=== PATIENT | female | born 1975 | race Caucasian/White ===

== ENCOUNTER 2023-01-10 20:23 | Day surgery (SDC) | payer OTHER, SELFPAY ==
[2023-01-10 20:31] VITALS: BP 138/86; PULSE 65; RESP 16; TEMP 36.4; O2SAT 99; BMI 23.0
--- NOTE | 2023-01-10 20:54 | CRLHL7_ITS ---
For Patients: As a result of the Century Cures Act, medical imaging exams and procedure reports are released immediately into your electronic medical record. You may view this report before your referring provider. If you have questions, please contact your health care provider. INDICATION: Right lower quadrant abdominal pain TECHNIQUE: CT Abdomen and pelvis with i.v. contrast. Coronal and sagittal reformats were obtained. CONTRAST: 64 mL Isovue 370 COMPARISON: None FINDINGS: Lower chest: Unremarkable. Liver: Several liver cysts are present measuring up to 2 cm. Spleen: Unremarkable. Pancreas: Unremarkable. Gallbladder: Unremarkable. Kidney: Unremarkable. No kidney or ureteral stones or obstruction seen. Adrenal: Unremarkable. Bowel: In the right flank and lower quadrant, there is a swirled appearance of decompressed small bowel loops and mesenteric vessels seen on image 88 which may be due to an internal hernia or small bowel volvulus. A moderate large amount of colonic stool is present within the cecum to the descending colon. The appendix is not identified. Vascular: Unremarkable. Lymph: Unremarkable. Peritoneum: Unremarkable. No pneumoperitoneum is seen. No significant ascites is noted. Pelvis: The uterus is enlarged with numerous fibroids. A calcified fibroid measuring 3.3 cm is seen in the posterior myometrium. Soft tissue: Unremarkable. Bone: Unremarkable for age. IMPRESSION: 1. In the right flank and lower quadrant, there is a swirled appearance of decompressed small bowel loops and mesenteric vessels seen on image 88 which may be due to an internal hernia or small bowel volvulus. Dictated by Kevan Cedeno MD @ 01/10/2023 10:15:07 PM Please note that all CT scans at this facility use dose modulation, iterative reconstruction, and/or weight-based dosing when appropriate to reduce radiation dose to as low as reasonably achievable. Dictated by: Kevan Cedeno MD @ 01/10/2023 22:15:14 (Electronically Signed)
--- NOTE | 2023-01-10 20:57 | ED_ITS ---
HPI - Abdominal Pain General Chief Complaint: Abdominal Pain Stated Complaint: Very bad Stomach ache Time Seen by Provider: 01/10/23 20:30 History of Present Illness HPI narrative: This 47-year-old female comes in with abdominal pain that began this afternoon. She states that she ran a 25 K run this morning and did well but then several hours later began to have pain across her lower abdomen. This pain is worsened since then. She has had some nausea but no vomiting. She states that the pain is relieved when remaining still. She had a hard time standing up straight when ambulating in here. Related Data Home Medications Medication Instructions Recorded Confirmed paroxetine HCl 12.5 mg 12.5 mg PO DAILY 01/10/23 01/10/23 tablet,extended release 24 hr Allergies Allergy/AdvReac Type Severity Reaction Status Date / Time No Known Drug Allergies Allergy Verified 01/10/23 20:34 Review of Systems Status of ROS Reports: 10 or more systems reviewed and unremarkable except as noted in History and below Narrative Constitutional: No fevers, no weight gain or loss. Eyes: No discharge. No vision changes. HENT: No congestion, no sore throat, no ear pain. Cardiovascular: No chest pain, no palpitations. Respiratory: No shortness of breath, no wheezes, no cough. Gastrointestinal: Abdominal pain with nausea as described above. Genitourinary: No dysuria, no hematuria. Musculoskeletal: Normal range of motion. Skin: No rashes, no pruritis. Neurological: No dizziness, weakness, sensory change, speech change. Endo/Heme/Allergies: No bruising or bleeding. No polydipsia. Pysch: no suicidality, no anxiety, no insomnia. All other systems reviewed and are negative. [facility] Medical History (Updated 01/10/23 @ 23:09 by Johnathon Mccracken MD) Dysthymia ?F34.1 - Dysthymic disorder (ICD-10) Iron deficiency anemia, unspecified ?D50.9 - Iron deficiency anemia, unspecified (ICD-10) History of placenta abruption ?Z87.59 - Personal history of other complications of , childbirth and the puerperium (ICD-10) Social History Smoking Status: Never smoker Do you use any of these nicotine containing products: None How often do you have a drink containing alcohol: monthly or less How many standard drinks containing alcohol do you have on a typical day: 1 or 2 How often do you have six or more drinks on one occasion: Never AUDIT-C Alcohol total score: 1 Non-prescribed substance use: denies use Exam Narrative: Exam Narrative: Constitutional: Well-developed, well-nourished, no acute distress. HEENT: Normocephalic, atraumatic. Neck: Normal range of motion. Nontender. Supple. Heart: Regular. No murmurs. Normal rate. Intact distal pulses. Lungs: Clear to auscultation. No chest discomfort. No wheezes, rhonchi, or rales. Abdomen: Decreased bowel sounds. Pain across the lower abdomen. Rovsing sign is positive. Rebound tenderness is present. Genitalia: Deferred. Back: No midline tenderness. Normal range of motion. Extremities: Normal range of motion. No injury. Skin: Intact. No rash. Warm. No erythema or pallor. Neurologic: No altered sensation. No weakness. Alert and oriented. Psychiatric: No suicidality. No anxiety or depression. No insomnia. Nursing notes and vitals signs are reviewed. Const: Vital Signs, click to edit/add: Vital Signs - 24 hr 01/10/23 20:31 Temperature 97.6 F Pulse Rate [Left P ulse Oximeter] 65 Respiratory Rate 16 Blood Pressure [Ri ght Upper Arm] 138/86 Pulse Oximetry 99 Oxygen Delivery Me thod Room Air Course Vital Signs Vital signs: Initial Vital Signs Temperature 97.6 F 01/10/23 20:31 Temperature Source Temporal Artery Scan 01/10/23 20:31 Pulse Rate 65 01/10/23 20:31 Respiratory Rate 16 01/10/23 20:31 Blood Pressure 138/86 01/10/23 20:31 Blood Pressure Mean 103 01/10/23 20:31 Blood Pressure Position Sitting 01/10/23 20:31 Pulse Oximetry 99 01/10/23 20:31 Oxygen Delivery Method Room Air 01/10/23 20:31 Vital Signs Temperature 97.6 F 01/10/23 20:31 Pulse Rate 65 01/10/23 20:31 Respiratory Rate 16 01/10/23 20:31 Blood Pressure 138/86 01/10/23 20:31 Pulse Oximetry 99 01/10/23 20:31 Oxygen Delivery Method Room Air 01/10/23 20:31 Temperature 97.6 F 01/10/23 20:31 Pulse Rate 65 01/10/23 20:31 Respiratory Rate 16 01/10/23 20:31 Blood Pressure 138/86 01/10/23 20:31 Pulse Oximetry 99 01/10/23 20:31 Oxygen Delivery Method Room Air 01/10/23 20:31 MDM - Abdominal Pain MDM Narrative Medical decision making narrative: This patient comes in with severe pain in her right lower quadrant. CT imaging of the abdomen and pelvis does show a normal appendix but also changes in the bowel in that area that may be related to an internal hernia or possible volvulus. I spoke with the surgeon on-call, Dr. Pfeiffer, who recommends laparoscopic surgery to further evaluate and hopefully correct this problem. The patient is agreeable to this plan. Lab Data Labs: Lab Results 01/10/23 Range/Units 20:37 WBC 5.97 (4.50-11.00) K/uL RBC 4.22 (4.00-5.20) m/uL Hgb 12.2 (12.0-16.0) gm/dL Hct 37.4 (33.0-51.0) % MCV 89 (80-100) fL MCH 29 (26-34) pg MCHC 33 (32-36) gm/dL RDW Coeff of Valeria 14.0 (11.5-15.5) % Plt Count 318 (140-440) K/uL Neut % (Auto) 47.6 (42.0-72.0) % Lymph % (Auto) 42.5 (20-44) % [place] % (Auto) 7.9 (0.0-11.0) % Eos % (Auto) 1.5 (0.0-7.0) % Baso % (Auto) 0.5 (0.0-3.0) % Neut # (Auto) 2.84 (1.7-7.0) K/uL Lymph # (Auto) 2.54 (0.90-2.90) K/uL [place] # (Auto) 0.50 (0.00-0.90) K/UL Eos # (Auto) 0.09 (0.00-0.50) K/uL Baso # (Auto) 0.03 (0.00-0.30) K/uL Sodium 139 (135-149) mmol/L Potassium 3.6 (3.6-5.1) mmol/L Chloride 106 (96-114) mmol/L Carbon Dioxide 25 (20-32) mmol/L BUN 16 (5-24) mg/dL Creatinine 0.7 (0.5-1.5) mg/dL Estimated Creat Clear 83.07 Estimated GFR 108 ml/min Glucose 104 (60-115) mg/dL Calcium 8.8 (8.4-10.6) mg/dL Discharge Plan Discharge Clinical Impression: Volvulus Patient Disposition: XFER to OR Prescriptions: No Action paroxetine HCl 12.5 mg tablet extended release 24 hr 12.5 mg PO DAILY Follow Up/Referrals: Provider,Not a Local [Primary Care Provider] -
[2023-01-10 21:01] LABS: Basophils Absolute Auto 0.03 K/uL (0.00-0.30); Basophils Percent Auto 0.5 % (0.0-3.0); Eosinophils Absolute Auto 0.09 K/uL (0.00-0.50); Eosinophils Percent Auto 1.5 % (0.0-7.0); Hematocrit 37.4 % (33.0-51.0); Hemoglobin* 12.2 gm/dL (12.0-16.0); Lymphocytes Absolute Auto 2.54 K/uL (0.90-2.90); Lymphocytes Percent Auto 42.5 % (20-44); Mean Corpuscular HGB Conc 33 gm/dL (32-36); Mean Corpuscular Hemoglobin 29 pg (26-34); Mean Corpuscular Volume 89 fL (80-100); Monocytes Percent Auto 7.9 % (0.0-11.0); Neutrophils Absolute Auto 2.84 K/uL (1.7-7.0); Neutrophils Percent Auto 47.6 % (42.0-72.0); Platelet Count* 318 K/uL (140-440); Red Blood Count 4.22 m/uL (4.00-5.20); White Blood Count* 5.97 K/uL (4.50-11.00)
[2023-01-10 21:05] LABS: Slide Review Reflex No
[2023-01-10 21:10] LABS: Chloride* 106 mmol/L (96-114); Sodium* 139 mmol/L (135-149)
[2023-01-10 21:11] LABS: Potassium* 3.6 mmol/L (3.6-5.1)
[2023-01-10 21:13] LABS: Carbon Dioxide* 25 mmol/L (20-32); Creatinine* 0.7 mg/dL (0.5-1.5); Est. Creatinine Clearance* 83.07; Estimated Glomerular Filt Rate 108 ml/min
[2023-01-10 21:14] LABS: Blood Urea Nitrogen* 16 mg/dL (5-24); Calcium* 8.8 mg/dL (8.4-10.6); Glucose* 104 mg/dL (60-115)
[2023-01-10] MEDS: 0.9 % SODIUM CHLORIDE 1000 ml 1,000 ML IV (21:50)
--- NOTE | 2023-01-10 23:29 | P.GSHP_ITS ---
History of Present Illness History of Present Illness Date Seen: 01/10/23 Chief complaint: Very bad Stomach ache Narrative: Antonia Gann is a 47 year old female Who presented to the emergency room with right lower quadrant abdominal pain that started today after eating dinner. Patient ran 25 km today. She is training for a 50 km race. She was doing well and went to dinner with her friends. However, during dinner she developed severe abdominal pain that was described as steady discomfort that was worse with movement. When patient stood up, she was not able to walk well. She then was brought to the emergency room by her significant other. Patient had nausea but no vomiting. For the past 3 days she had occasional episodes of discomfort that went away spontaneously. Patient continues to feel a little bit bloated. She was passing gas today. Her last bowel movement was yesterday. Upon her workup in the emergency room she was found to have a normal WBC. An abdominal CT was obtained that showed stool in the colon throughout. There was also a swirl sign in the right lower quadrant concerning for possible internal hernia. The appendix was not visualized. Patient had a colonoscopy last fall and that was normal. Review of Systems Narrative: General: no fevers HENT: no problems swallowing CV: no shortness of breath Resp: no cough GI: See above Skin: no new rashes Musculoskeletal: no back pain Neuro: no muscle weakness Psyche: + anxiety PFSH PFSH Medical History (Updated 01/10/23 @ 23:33 by Mauricio House MD) Anxiety ?F41.9 - Anxiety disorder, unspecified (ICD-10) Dysthymia ?F34.1 - Dysthymic disorder (ICD-10) Iron deficiency anemia, unspecified ?D50.9 - Iron deficiency anemia, unspecified (ICD-10) History of placenta abruption ?Z87.59 - Personal history of other complications of , childbirth and the puerperium (ICD-10) Surgical History (Updated 01/10/23 @ 23:33 by Mauricio House MD) History of delivery ?Z98.891 - History of uterine scar from previous surgery (ICD-10) Social History (Updated 01/10/23 @ 23:33 by Mauricio House MD) Narrative: patient is an commercial real estate appraiser. Smoking Status: Never smoker Do you use any of these nicotine containing products: None How often do you have a drink containing alcohol: monthly or less How many standard drinks containing alcohol do you have on a typical day: 1 or 2 How often do you have six or more drinks on one occasion: Never AUDIT-C Alcohol total score: 1 Non-prescribed substance use: denies use Meds Home Medications and Allergies Home Medications Medication Instructions Recorded Confirmed Type paroxetine HCl 12.5 mg 12.5 mg PO DAILY 01/10/23 01/10/23 History tablet,extended release 24 hr Allergies Allergy/AdvReac Type Severity Reaction Status Date / Time No Known Drug Allergies Allergy Verified 01/10/23 20:34 Exam Narrative: Exam Narrative: General appearance: Alert, cooperative, and in no distress Pulmonary: Chest symmetric, lungs clear bilaterally Cardiovascular Heart: Regular rate and rhythm, S1, S2, no murmurs/rubs/gallops Gastrointestinal Abdominal: soft, not distended, Tender to palpation in the right lower quadrant with no peritoneal signs. Psychiatric: Alert, cooperative, normal affect. Const: Vital Signs, click to edit/add: Vital Signs - 24 hr 01/10/23 20:31 Temperature 97.6 F Pulse Rate [Left P ulse Oximeter] 65 Respiratory Rate 16 Blood Pressure [Ri ght Upper Arm] 138/86 Pulse Oximetry 99 Oxygen Delivery Me thod Room Air Assessment and Plan Assessment and plan (1) Volvulus: Status: Acute Plan 47-year-old female presented to emergency room with right lower quadrant abdominal pain due to possible internal hernia. I discussed with the patient her significant other her laboratory and CT findings. Patient's CT shows a swirl of the mesentery and small bowel in the right lower quadrant. The appendix was not visualized. Patient's only intra- abdominal surgery was a . I discussed with the patient that this presentation is unusual for a patient with no history of intra-abdominal surgery. However, given the possible finding of internal hernia and bowel compromise, I would recommend to proceed with exploratory laparoscopy and possible exploratory laparotomy. I discussed with the patient the procedure. The risks associated procedure including infection, bleeding, injury to intra- abdominal organs, possible need to remove her appendix, injury to the to the large intestine during the entrance into the abdomen were all discussed with the patient, and she agreed to proceed.
[2023-01-10] MEDS: LACTATED RINGERS 1000 ML 1,000 ML 100 ML IV (23:46)
[2023-01-10] MEDS: CEFAZOLIN 1 GM inj IVP (23:55)
[2023-01-11] VITALS (22 sets, daily range): BP systolic 110–143; BP diastolic 63–88; PULSE 61–101; RESP 14–18; TEMP 37.2–37.7; O2SAT 92–98
[2023-01-11] MEDS: BUPIVACAINE 0.25% 30 ML INJECTION (00:59)
--- NOTE | 2023-01-11 01:10 | PM.GSPRC ---
Operative Note Date of procedure: 01/11/23 Pre-op diagnosis: 1. Right for lower quadrant pain with possible small bowel volvulus. Post-op diagnosis: 1. Ileocecal junction was twisted and tucked in the retroperitoneal pocket. 2. Retrocecal appendix. Type of Procedure: 1. Exploratory laparoscopy. 2. Laparoscopic lysis of adhesions. 3. Incidental appendectomy. Indications: 47-year-old female presented to emergency room with sudden onset of right lower quadrant abdominal pain that started several hours prior to presentation. Patient was nauseated but did not have any episodes of vomiting. She was passing gas. Upon her workup she was found to have normal WBC. Her electrolytes were normal. An abdominal CT was obtained that showed a possible mesenteric swirl in the right lower quadrant concerning for a small bowel volvulus. Appendix was not visualized. On clinical exam patient had tenderness to palpation in the right lower quadrant with no peritoneal signs. Given her clinical picture and her physical exam, I recommended to proceed with laparoscopic exploration and possible exploratory laparotomy. The procedure was discussed in detail. The risks associated procedure including infection, bleeding, injury to intra-abdominal organs, the need for additional procedures, and possible appendectomy were all discussed with the patient, and she agreed to proceed. Procedure Description: After discussing the risks and benefits of the procedure, the patient signed informed consent.? The operative site was marked and the patient was brought to the operating room and placed on the operating table in supine position.? Care was taken to pad the patient's pressure points.?? The patient was then intubated by anesthesia.?? The operative site was then prepped and draped in the usual sterile fashion.? A time-out was then performed. A 5-mm laparoscopy port was placed in the left upper quadrant guided by a 5-mm laparoscope placed into a translucent trochar. Passage through the layers of the abdominal wall was visualized with the laparoscope. A pneumoperitoneum was established. A 30-degree 5-mm laparoscope was advanced into the abdomen. Abdomen was surveyed and revealed a redundant cecum. The cecum appeared viable with no serosal tears. Two additional 5 mm ports were placed in the left lower quadrant and suprapubically under direct visualization. The right lower quadrant was then examined. There was a twist in the ileocecal junction with small intestine and the ileocecal junction positioned in the retroperitoneal pocket. The retroperitoneal pocket adhesions were fairly dense. The ileocecal junction was reduced from the retrocecal pocket with graspers, and the large intestine and small intestine were viable. The appendix was not visualized because it was diving into the retrocecal space but the base of the appendix was seen and was not inflamed. The dense retroperitoneal adhesions were lysed with Harmonic scalpel obliterating the pocket. The appendix was very thin and running into the retrocecal space. I then proceeded with running the small bowel laparoscopically. This was done with soft jaw graspers starting at the terminal ileum and continuing to the ligament of Treitz. Ligament of Treitz was not definitely visualized but no additional adhesions of the small intestine were noted. The small intestine appeared healthy. I then proceeded with incidental appendectomy. The suprapubic 5 mm port was then upsized to a 12 mm port. The appendix was grasped near its base. A window was created between appendiceal mesentery and the appendix using [place] grasper. The appendix was then stapled at its base with a vascular load of Endo-RAYSA stapler. The appendix was then dissected off the appendiceal mesentery in the retrograde fashion with Harmonic scalpel. There was no defined appendiceal artery noted. When the appendix was free, it was removed from the abdomen through a 12 mm port. The surgical field was examined and no bleeding was seen. The appendiceal base staple line appeared to be intact. The 12-mm port was withdrawn and the fascial defect was closed with 0-0 Vicryl stitch. The closure was examined intra-abdominally, and no intra-abdominal structures were incarcerated in the closure. The 5-mm port was removed under direct visualization. The left upper quadrant port was used to evacuate the pneumoperitoneum and then withdrawn. The skin incisions were closed with 4-0 monocryl. Steri-Strips were applied over the incisions. All counts were correct at the end of the case. The patient tolerated this procedure well and was transferred to PACU in stable condition. Findings: Ileocecal junction was twisted and positioned in the retroperitoneal pocket making it difficult to reduce spontaneously. Anesthesia: GETA Surgeon: Mauricio House MD Estimated blood loss (mL): 5 Specimen: Appendix Condition: stable Disposition: PACU
[2023-01-11] MEDS: MEPERIDINE 25 MG/ML INJ 12.5 MG IVP (01:15)
--- NOTE | 2023-01-11 01:18 | P.ANES_ITS ---
Anesthesia Charges Start Date/Time Anesthesia Start Date: 01/11/23 Anesthesia Start Time: 23:46 Stop Date/Time Anesthesia Stop Date: 01/11/23 Anesthesia Stop Time: 01:17 Summary Emergency: [facility] [employer]
[2023-01-11] MEDS: LACTATED RINGERS 1000 ML 1,000 ML 75 ML IV (03:30)
[2023-01-11] MEDS: ACETAMINOPHEN 325 MG TABLET 650 MG PO (04:36)
--- NOTE | 2023-01-11 07:21 | PC.NURSE ---
[id number] Shift Summary? CCU1 K.D. 47 Appendectomy- adhesions and volvulus? Came to floor at 0145, on post op vitals. Plans to DC home with this morning pending stability. On 1 L overnight for sats in high 80s. Can wean once awake. Denies pain. Given 650 Tylenol and pillow to splint. 3?lap sites CDI. LL site was draining prior to transfer. Voided in BR x2, drinking water, IVFs DCed. IV in L hand. May advance diet as tolerated. IS reviewed. Stable with SBA?
--- NOTE | 2023-01-11 11:18 | P.DS_ITS ---
DS: Providers Provider Date Seen: 01/11/23 Primary care physician: Not a Local Provider Attending Physician on discharge: Mauricio House MD DS: Diagnosis Discharge Diagnosis (1) Volvulus: Status: Acute DS: Summary Hospital Course Hospital Course: 47-year-old female was admitted to the hospital after exploratory laparoscopy, lysis of adhesions, and incidental appendectomy. Intraoperatively patient was found to have a volvulus around the ileocecal valve tucked into the retroperitoneum comprised of pocket of dense adhesions. Patient did well postoperatively. Time Spent with Patient Time attestation: Total time spent providing and/or coordinating discharge services: Exam Narrative: Exam Narrative: Abdomen is soft, not distended, not tender to palpation. Laparoscopic incisions are covered with clean dressings. Const: Vital Signs, click to edit/add: Vital Signs - 24 hr 01/10/23 20:31 01/11/23 01:12 01/11/23 01:15 Temperature 97.6 F 99.9 F H Pulse Rate 101 H 88 Pulse Rate [Left P ulse Oximeter] 65 Pulse Rate [Pulse Oximeter] Respiratory Rate 16 16 16 Blood Pressure 141/88 H 143/88 H Blood Pressure [Ri ght Arm] Blood Pressure [Ri ght Upper Arm] 138/86 Pulse Oximetry 99 97 98 Oxygen Delivery Me thod Room Air OxyMask Oxygen Flow Rate 01/11/23 01:20 01/11/23 01:25 01/11/23 01:30 Temperature Pulse Rate 74 71 70 Pulse Rate [Left P ulse Oximeter] Pulse Rate [Pulse Oximeter] Respiratory Rate 14 16 16 Blood Pressure 131/77 121/66 119/63 Blood Pressure [Ri ght Arm] Blood Pressure [Ri ght Upper Arm] Pulse Oximetry 98 95 93 Oxygen Delivery Me thod Oxygen Flow Rate 01/11/23 01:35 01/11/23 01:40 01/11/23 01:49 Temperature 99.8 F H Pulse Rate 64 61 Pulse Rate [Left P ulse Oximeter] Pulse Rate [Pulse Oximeter] Respiratory Rate 14 14 16 Blood Pressure 123/70 117/71 Blood Pressure [Ri ght Arm] 110/68 Blood Pressure [Ri ght Upper Arm] Pulse Oximetry 95 97 Oxygen Delivery Me thod Nasal Cannula Oxygen Flow Rate 1 01/11/23 02:02 01/11/23 02:07 01/11/23 02:30 Temperature Pulse Rate Pulse Rate [Left P ulse Oximeter] Pulse Rate [Pulse Oximeter] Respiratory Rate 16 16 16 Blood Pressure Blood Pressure [Ri ght Arm] 120/81 120/81 112/86 Blood Pressure [Ri ght Upper Arm] Pulse Oximetry Oxygen Delivery Me thod Nasal Cannula Nasal Cannula Nasal Cannula Oxygen Flow Rate 1 1 2 01/11/23 02:47 01/11/23 02:47 01/11/23 02:54 Temperature Pulse Rate Pulse Rate [Left P ulse Oximeter] Pulse Rate [Pulse Oximeter] 66 Respiratory Rate 16 18 Blood Pressure Blood Pressure [Ri ght Arm] 112/86 122/70 119/73 Blood Pressure [Ri ght Upper Arm] Pulse Oximetry 92 Oxygen Delivery Me thod Nasal Cannula Room Air Room Air Oxygen Flow Rate 2 01/11/23 03:00 01/11/23 03:40 01/11/23 04:29 Temperature 98.9 F Pulse Rate Pulse Rate [Left P ulse Oximeter] Pulse Rate [Pulse Oximeter] Respiratory Rate Blood Pressure Blood Pressure [Ri ght Arm] 115/73 Blood Pressure [Ri ght Upper Arm] Pulse Oximetry 98 Oxygen Delivery Me thod Nasal Cannula Oxygen Flow Rate 2 01/11/23 07:00 01/11/23 07:39 01/11/23 07:42 Temperature 98.9 F 98.9 F Pulse Rate Pulse Rate [Left P ulse Oximeter] Pulse Rate [Pulse Oximeter] 79 79 Respiratory Rate 16 16 Blood Pressure Blood Pressure [Ri ght Arm] 118/75 118/75 Blood Pressure [Ri ght Upper Arm] Pulse Oximetry 97 97 97 Oxygen Delivery Me thod Room Air Room Air Room Air Oxygen Flow Rate 01/11/23 07:54 Temperature 98.9 F Pulse Rate Pulse Rate [Left P ulse Oximeter] Pulse Rate [Pulse Oximeter] 69 Respiratory Rate 16 Blood Pressure Blood Pressure [Ri ght Arm] 119/76 Blood Pressure [Ri ght Upper Arm] Pulse Oximetry 97 Oxygen Delivery Me thod Room Air Oxygen Flow Rate DS: Data Data Completed and Pending Labs on day of discharge: Labs from last 24 hours 01/10/23 20:37 WBC 5.97 RBC 4.22 Hgb 12.2 Hct 37.4 MCV 89 MCH 29 MCHC 33 RDW Coeff of Valeria 14.0 Plt Count 318 Neut % (Auto) 47.6 Lymph % (Auto) 42.5 [place] % (Auto) 7.9 Eos % (Auto) 1.5 Baso % (Auto) 0.5 Neut # (Auto) 2.84 Lymph # (Auto) 2.54 [place] # (Auto) 0.50 Eos # (Auto) 0.09 Baso # (Auto) 0.03 Sodium 139 Potassium 3.6 Chloride 106 Carbon Dioxide 25 BUN 16 Creatinine 0.7 Estimated Creat Clear 83.07 Estimated GFR 108 Glucose 104 Calcium 8.8 Discharge Plan Discharge Disposition: Home, Self-Care Discharging Surgeon: Mauricio House Follow-Up Appointment: 2 weeks [facility] Prescriptions: New hydrocodone-acetaminophen 5-325 mg tablet 1 tab PO Q6H PRN (Reason: pain) Qty: 10 0RF Continued paroxetine HCl 12.5 mg tablet extended release 24 hr 12.5 mg PO DAILY Activity Level: No strenuous activity Activity Detail: Patient should avoid running for the next 2 weeks. After the 2 weeks, she can slowly advance her running as tolerated. She should avoid strong core work and lifting anything more than 15-20 lb for total of 4 weeks postoperatively. Discharge Diet: Regular Patient Instructions: Hydrocodone/Acetaminophen (By mouth), Laparoscopic Appendectomy (DC) Forms: Work/School Release Follow-up: Mauricio House MD [Staff Physician] - Discharge Orders: Discharge Order (Routine); Ordered 01/11/23 Ordered By: Mauricio House
--- NOTE | 2023-01-11 13:04 | PC.NURSE ---
Discharge: Patient pleasant and cooperative, up independently. No c/o pain. Bowel sounds present. Vitals stable and WNL. Tolerating regular diet, denies nausea. Discharge instructions given, patient informed to make follow up within next two weeks, new medication orders reviewed. Questions answered as needed. IV removed with catheter intact. Patient discharged @ 1236 via wheelchair, home with .
== END 2023-01-11 12:36 | disposition home or self-care (01) ==
LOC: ED 23:11 → SS 23:45 → MEDSURG 01-11 02:16
PROVIDERS: Emergency Provider Emergency Medicine Emergency Medical Services; Visit Provider Surgery
PROC: (CPT 49320; principal; 2023-01-10 23:45)
DX: K56.2 Volvulus (principal); K66.0 Peritoneal adhesions (postprocedural) (postinfection); R10.31 Right lower quadrant pain; F41.9 Anxiety disorder, unspecified
CPT/HCPCS: 44180; 00790; 36415; 74177; 80048; 85025; 88302; 99140; 99285; A9270; J0330; J0690; J1100; J1200; J1885; J2175; J2405; J2704; J2710; J3010; J3475; J3490; J7030; J7120; Q9967

== ENCOUNTER 2024-04-28 08:57 | Outpatient (CLI) | payer OTHER, SELFPAY ==
--- OUTSIDE RECORDS SUMMARY | 2024-04-28 09:00 | XMS_ITS | Clinical Summary ---
Author Organization [employer] [facility] Address [place], [place] [address] Care Team Providers Care Cardiologist Name Role Phone Padmini Raines Primary Care Provider [phone] Allergies No known active allergies Medications Medication Sig Dispensed Refills Start Date End Date Status PARoxetine (Paxil Cr) 12.5 mg Extended-Release tabletIndications :Dysthymia Take 1 Tablet by mouth every morning. 90 Tablet 3 10/19/2023 Active docusate (COLACE) 100 mg capsule Take 1 Capsule by mouth two times daily. 04/01/2024 Active polyethylene glycol (MIRALAX; GLYCOLAX) 17 g per packet packet Mix 17 g in liquid then take by mouth one time. 04/01/2024 Active ferrous sulfate 325 mg delayed release tablet Take 1 Tablet (325 mg) by mouth once every other day. 90 Tablet 3 02/27/2021 04/13/2024 Discontinued( *Med complete/Victorina men complete/Leve l of care change) polyethylene glycol-electrolyt e (GOLYTELY) 236-22.74-6.74 -5.86 gram suspensionIndicat ions:Cecal bascule (HC) Take 4,000 mL by mouth one time for 1 dose. 4000 mL 04/22/2024 04/22/2024 Active Problems Problem Noted Date Diagnosed Date Iron deficiency anemia 02/27/2021 Dysthymia 02/27/2021 Unspecified vitamin D deficiency 12/20/2009 Resolved Problems Problem Noted Date Diagnosed Date Resolved Date ASCUS of cervix with negative high risk HPV 09/07/2016 10/03/2016 Overview: 09/2016 PLAN: PAP/HPV 09/2019 S/P section 02/12/2011 014 Placental abruption 02/12/2011 06/28/20 14 Supervision of normal first 08/15/2010 06/28/2014 Encounters Date Type Department Care Team Description 04/27/2024 3:00 PM CDT Preop Visit [facility] [address] [facility] [place] [address] Padmini Raines, Preoperative Exam (04/28 barium enema, 05/02/24 laparoscopic ileocecectomy - [facility] - Dr. House) 04/27/2024 Travel 04/20/2024 Orders Only [facility] Scanner 1 scan: (1-Ord) [facility], PAYTONVE [facility]OP[facility], 04/20/2024 04/19/2024 Telephone [facility] [address] [facility] [place] [address] Mauricio House MD Pre Procedure (Go-lytly prep) 04/18/2024 4:30 PM CDT Office Visit [facility] [address] [facility] [place] [address] Mauricio House MD Consult (Cecal bascule, small bowel obstruction) 04/18/2024 Travel 04/18/2024 Orders Only [facility] [address] [facility] [place] [address] Padmini aRines DO <No scans attached> 04/13/2024 3:00 PM CDT Office Visit [facility] [address] [facility] [place] [address] Padmini Raines, Hospital F/U (Cecal bascule, bowel obstruction 03/31/24) 04/12/2024 Travel from Last 3 Months Immunizations Name Administration Dates Next Due AMB Influenza, IIV4 PF (=>6 mos Flulaval,Fluzone Fluarix)(Flu Clinic Only) 06/12/2020,06/26/2016,06/08/2015 Amb Influenza, Inact (High-d ose) (Flu Clinic Only) 06/23/2014 COVID-19 Vaccine Spikevax (M oderna 50mcg/0.5mL) 12YO+ [id number] Formula PF 07/22/2023 COVID-19 vaccine ([employer]Bio NTech 30mcg/0.3mL) 12YO+ BIVALENT PF, MDV 07/14/2022 COVID-19 vaccine ([employer]-Bio NTech 30mcg/0.3mL) PF, MDV 12/29/2020,12/08/2020 Influenza, IIV3 (Age 6-35 mos) 08/18/2011 Influenza, IIV3 (Age >=3 years) 06/23/20 14,06/23/2013,08/18/2011,06/13/20 10 Influenza, IIV4 07/22/2023, 2,07/06/2018,06/26/20 16,06/08/2015 MMR 02/15/2011 Tdap 02/27/2021,12/17/2009 Family History Medical History Relation Name Comments Good Health Brother Cancer-colon Father Good Health Maternal Grandfather Heart Disease Maternal Grandmother Melanoma Maternal Uncle Good Health Mother COPD Paternal Grandfather Emphyse ma related to smoking Cancer-colon Paternal Grandmother mid 60s Good Health Sister 1 Good Health Sister 2 Good Health Son Cancer-breast No Family History Cancer-ovarian No Family History Relation Name Status Comments Brother Father Maternal Grandfather Maternal Grandmother Maternal Uncle Mother Paternal Grandfather Paternal Grandmother Sister 1 Sister 2 Alive Son Alive Social History Tobacco Use Types Packs/Day Years Used Date Smoking Tobacco: Never Smokeless Tobacco: Never Tobacco Cessation:Counseling Given: Yes Alcohol Use Standard Drinks/Week Comments Yes 0 (1 standard drink = 0.6 oz pur e alcohol) twice a month PHQ-2 Answer Date Recorded PHQ-2 TOTAL SCORE 0 02/27/2021 Social Connections Answer Date Recorded Frequency of Communication with Friends and Fami ly 0 04/13/2024 Financial Resource Strain Answer Date R ecorded Difficulty of Paying Living Expenses 3 04/13/2024 Difficulty of Paying Living Expenses Not on file 04/13/2024 Food Insecurity Answer Date Recorded Worried About Running Out of Food in the Last Ye ar 1 04/13/2024 Transportation Needs Answer Date Record ed Lack of Transportation (Medical) 1 04/13/2024 Housing Stability Answer Date Recorded Unable to Pay for Housing in the Last Year 1 04/13/2024 Sex and Gender Information Value Date Recorded Sex Assigned at Female 05/11/2020 9:38 PM CDT Gender Identity Female 05/11/2020 9:38 PM CDT Sexual Orientation Straight 05/11/2020 9: 38 PM CDT Travel History Travel Start Travel End [place] 03/25/2024 04/11/2024 Obstetrics History Para Term AB IAB SAB Ectopic Multiple Livin g Live Births 1 1 1 1 1 Date Outcome GA Total Labor Labor/2nd/3rd Weight Sex Type Anes PTL Mitzi A1 A5 Name Clin 011 Term 41w 2d 3.86 kg (8 lb 8 oz) M C-Sec tion N Living Delivery Location:[place] Comments:Emergent C-Se ction due to placental abruption. Transfused 4 U PRBCs & 2U FFP P del Last Filed Vital Signs Vital Sign Reading Time Taken Comments Blood Pressure 126/86 04/27/2024 3:08 PM CDT Pulse 59 04/27/2024 3:08 PM CDT Temperature 36.9 ??C (98.4 ??F) 07/19/2021 1:40 PM CS T Respiratory Rate 12 07/19/2021 1:40 PM ENVIRONMENT COORDINATOR Oxygen Saturation 97% 04/27/2024 3:08 PM CDT Inhaled Oxygen Concentration - - Weight 60 kg (132 lb 4.8 oz) 04/27/2024 3:08 PM CDT Height 159.2 cm (5' 2.68) 10/19/2023 1:08 PM CS T Body Mass Index 23.68 10/19/2023 1:08 PM ENVIRONMENT COORDINATOR Plan of Treatment Upcoming Encounters Date Type Department Care Team (Late st Contact Info) Description 05/02/2024 6:00 AM CDT Office Visit [facility] at [facility] [address] [place] [phone] Mauricio House MD [address] [place] [address] Health Maintenance Due Date Last Done Comments Hepatitis C screening for age 18-79 1994 Depression screening for age 12+ 02/27/2022 02/27/2021, 02/14/2020, 02/17/2019, Additional history exists Mammogram for age 45-75 04/13/2024 04/13/20, 03/13/2022, 03/08/2021 Influenza for age 9-49 05/08/2024 3, 07/14/2022, 06/12/2020, Additional history exists BMI (ht and wt on same day) for age 18+ 10/19/2024 10/19/2023, 03/04/2022, 07/19/2021, Additional history exists Lipids for age 45-75 02/27/2026 02/27/2021, 12/18/19 10 Pap test for age 21-65 02/27/2026 , 02/27/2021, 09/25/2016, Additional history exists Colonoscopy through age 75 05/21/202705/21, 05/21/2022, 05/21/2022 Tetanus booster 02/27/2031 02/27/2021, 12/17/2009 HIV for age 15-65 Completed 06/13/2010 Fecal testing non-DNA (FIT,FOBT,iFOBT) for age 45-75 Discontinued 04/13/2018 Tdap Completed 02/27/2021, 12/17/2009 COVID-19 vaccine series Completed 07/22/20, 07/14/2022, 08/07/2021, Additional history exists Pneumococcal series for age 6-64 Aged Out No longer eligible based on patient's age to complete this topic Procedures Procedure Name Priority Date/Time Associated Diagnosis Comments SCAN-OPERATIVE/PROCE DURE REPORT 04/20/2024 12:00 AM CDT XR MAMMO PENG BILAT SCREEN Routine 04/13/2023 1:49 PM CDT Encounter for screening mammogram for malignant neoplasm of breast COLONOSCOPY SCREENING Routine 05/21/2022 9:48 AM CDT Screening for colon cancer LIPID PANEL W REFLEX MEASURED LDL Routine 02/27/2021 9:46 AM CDT Screening for lipid disorders HIGH WORKER THIN PREP PAP DIAGNOSTIC IMAGED Routine 02/27/2021 9:29 AM CDT ASCUS of cervix with negative high risk HPV OCCULT BLOOD IFOBT STOOL Routine 04/13/2018 2:53 PM CDT Traveler's diarrhea ANTI HIV 1/2 Routine 06/13/2010 11:29 AM CDT Supervision of normal first from Last 3 Months or Most Recently Relevant to Health Maintenance Results * SCAN-OPERATIVE/PROCEDURE REPORT (04/20/2024 12:00 AM CDT) Scanner OTHER * XR MAMMO PENG BILAT SCREEN (04/13/2023 1:49 PM CDT) Anatomical Region Laterality Modality BREASTS, Breast Left, Breast Right Bilateral Mammography Impressions 04/14/2023 4:28 PM CDT ??There is no radiographic evidence for malignancy. ??Recommend annual mammograms. MAMMOGRAM ASSESSMENT: ??ACR 1 Negative PATIENTS: You will also receive a letter with your examination results in an easy to read format. ??If you have questions about your results, please contact your referring provider. Narrative 04/14/2023 4:28 PM CDT For Patients: As a result of the Century Cures Act, medical imaging exams and procedure reports are released immediately into your electronic medical record. You may view this report before your referring provider. If you have questions, please contact your health care provider. XR MAMMO PENG BILAT SCREEN [[id number]] CLINICAL HISTORY: ??This is an asymptomatic 47 y.o. patient. INDICATION FOR EXAM: Mammogram Screening. TECHNIQUE: CC & MLO views were obtained. ??This study was evaluated with the assistance of Computer-Aided Detection. Breast Tomosynthesis was used in interpretation. COMPARISON FILM: Yes 03/13/22 [facility] 03/08/21 [facility] FINDINGS: ??The breasts are heterogeneously dense, which may obscure small masses. There are no dominant masses, suspicious micro calcifications or areas of architectural distortion. Breanna Corral MD MAMMO * COLONOSCOPY (05/21/2022 10:00 AM CDT) 05/21/2022 10:0 0 AM CDT Narrative Transcriptions Eleazar Gallagher MD - 05/21/2022 11:44 AM CDT Patient Name: Antonia Gann Procedure Date: 05/21/2022 Gender: Female Date of : 1975 Admit Type: Outpatient Procedure: Colonoscopy Proceduralist: Eleazar Gallagher MD , Uzma Avila, MARLENY (Nurse), Kassie Huerta (Nurse) Referring MD: Padmini Raines Indications/Pre-Op Diagnosis: Colon cancer screening in patient atincreased risk: Family history of colorectal cancer in multiple 2nd degree relatives, This is the patient's first colonoscopy Medications: Fentanyl 100 micrograms IV, Midazolam 3 mgIV, The level of sedation administered wasmoderate Procedure Description: The patient had risks, benefits and alternatives explained to andgave informed consent. The patient had a stable cardiopulmonary status and judged an adequate candidate for conscious sedation. The colonoscope was passed through the anus and advanced to thececum, identified by appendiceal orifice and ileocecal valve. Thecolonoscopy was performed without difficulty. The patient tolerated the procedure well. The quality of the bowel preparation was good. The ileocecal valve, appendiceal orifice, and rectum were photographed. Complications: No immediate complications. Estimated Blood Loss & Specimen: Estimated blood loss: none. Specimen collected - None Findings: The perianal and digital rectal examinations were normal. The colon (entire examined portion) was significantly redundant. The exam was otherwise without abnormality. Impressions/Post-Op Diagnosis: - Redundant colon. - The examination was otherwise normal. - No specimens collected. Recommendation: - Patient has a contact number available for emergencies. The signsand symptoms of potential delayed complications were discussed with the patient. Return to normal activities tomorrow. Written discharge instructions were provided to the patient. - Resume previous diet. - Continue present medications. - Repeat colonoscopy in 5 years for screening purposes with acolowrap. - Patient's sedation for a repeat study will require Anesthesia staff assistance. Moderate Sedation: A time out was performed before the procedure. Moderate (conscious) sedation was administered by the endoscopy nurse and supervised bythe endoscopist. The following parameters were monitored: oxygensaturation, heart rate, blood pressure, EKG, CO2, respiratory rate, adequacy of pulmonary ventilation and reponse to care. Please refer to the patient's medical record flowsheets and nursing notes for moderate sedation details. Total physician intraservice time was 39 minutes. Eleazar Gallagher MD 05/21/2022 11:44:52 AM This report has been signed electronically. Note Initiated On: 05/21/2022 10:00 AM Procedure Code(s): --- Professional --- 89081, Colonoscopy, flexible; diagnostic, including collection of specimen(s) bybrushing or washing, when performed (separateprocedure) Diagnosis Code(s): --- Professional --- Z80.0, Family history of malignant neoplasmof digestive organs Q43.8, Other specified congenitalmalformations of intestine CPT copyright 2020 [employer]. All rights reserved. The codes documented in this report are preliminary and upon patch sander reviewmay be revised to meet current compliance requirements. Scope In: 11:01:47 AM Scope Withdrawal Time 0 hours 6 minutes 30 seconds Scope Out: 11:39:09 AM Eleazar Gallagher MD PROCEDURE ORD * (ABNORMAL) LIPID PANEL W REFLEX MEASURED LDL (02/27/2021 9:46 AM CDT) CHOLESTEROL,TOTAL 219(H) 100 - 199 mg/dL 02/27/2021 6:03 PM CDT [facility] TRIGLYCERIDES 47 <150 mg/dL 02/27/2021 6:03 PM CDT [facility] HDL CHOLESTEROL 106 >40 mg/dL 6:03 PM CDT [facility] NON-HDL CHOLESTEROL 113 <145 mg/dl 02/27/2021 6:03 PM CDT [facility] CHOL/HDL RATIO 2.07 <4.50 02/27/2021 6:03 PM CDT [facility] LDL CHOLESTEROL 104 <=130 mg/dL 02/27/2021 6:03 PM CDT [facility] VLDL CHOLESTEROL 9 mg/dL 02/28/20 6:03 PM CDT [facility] PROVIDER ORDERED STATUS RANDOM 02/27/2021 6:03 PM CDT [facility] Blood BLOOD SPECIMEN / Unknown Venipuncture / Unknown 02/27/2021 9:46 AM CDT 02/27/2021 9:46 AM CDT Yulissa FRANK CHEMISTRY [facility] [address] [place] [address], * HIGH WORKER THIN PREP PAP DIAGNOSTIC IMAGED (02/27/2021 9:29 AM CDT) Case Report Gynecologic Cytology Report ? Case: [id number] ? Authorizing Provider: ??Yulissa Leach PA ?Collected: ? 02/27/2021 0929 ? Ordering Location: ? [facility] ?? Received: ?02/27/2021 1012 ? Clinic ? First Screen: ?Becca Dangelo ? Rescreen: ?Katlin Moore ? Specimen: ?HIGH WORKER ThinPrep Vial Diagnostic, Cervical ? 03/11/2021 10:13 AM [facility]AL [facility] INTERPRETATION/ RESULT NEGATIVE FOR INTRAEPITHELIAL LESION OR MALIGNANCY (NIL) (none) 03/11/2021 10:13 AM [facility] NISM(S) Shift in sajan suggestive of bacterial vaginosis 03/11/2021 10:13 AM [facility] SPECIMEN ADEQUACY Satisfactory for evaluation No endocervical component seen 03/11/2021 10:13 AM [facility] HPV REQUEST HPV and PAP 03/11/2021 10:13 AM [facility] Date of LMP 02/14/21 03/11/2021 10:13 AM T [facility] EN[facility] Last Pap Date 09/25/16 03/11/2021 10:13 AM T [facility] Last Pap Result ASCUS 10:13 AM CDT [facility] Abnormal Pap or [place] Bx in last 5 years Yes 03/11/2021 10:13 AM T [facility] Menstrual Status Regular Periods 03/11/2021 10:13 AM [facility] [place] Bx Done Today No 03/11/2021 10:13 AM T [facility] Additional Information None Given 03/11/2021 10:13 AM T [facility] Comment: Cytology is screened at [facility] - [address], [place] [address] and [facility] - [address] [place] [address] and [facility] - [address] [place] [address] Interpreted at [facility] - [address], [place] [address] Automated Review Successful 03/11/2021 10:13 AM [facility] EN[facility] Comment:Specimen processed s uccessfully by automated flame annealing machine operator device, ThinPrep Imaging System, [employer] ANCILLARY TESTING HIGH WORKER HPV Ordered, Please see separate report 03/11/2021 10:13 AM [facility] Note The pap test is a screening technique, not a diagnostic procedure. It is used primarily to screen for squamous cancers and precursor lesions. Published studies have shown that it is subject to both false negative and false positive results. The pap test should not be used as the sole means to diagnose or exclude pre-malignant and malignant lesions. 03/11/2021 10:13 AM [facility] Other (Cervical) Non-Blood / Unknown 02/27/2021 9:29 AM CDT 02/27/2021 10:12 AM CDT Yulissa FRANK PATHOLOGY/CYTOLOGY [facility] [address] [place] [address], [place] * OCCULT BLOOD IFOBT STOOL (04/13/2018 2:53 PM CDT) STOOL BLOOD ,IFOBT Negative Negative 04/13/2018 3:42 PM CDT [facility] Stool STOOL SPECIMEN / Unknown Non-Blood / Unknown 04/13/2018 2:53 PM CDT 04/13/2018 3:27 PM CDT Yulissa FRANK LABORATORY [facility] [address] [place] [address], * HIV (06/13/2010 11:29 AM CDT) ANTI HIV 1/2 Non-reacti ve [facility] Blood specimen (specimen) BLOOD SPECIMEN / Unknown 06/13/2010 11:29 AM CDT 06/13/2010 11:22 AM CDT Ese Gordon DIPLOMA MEDICAL ASSISTANT SEND OUTS [facility] INTERNAL ZIP [address] [place] [id number] from Last 3 Months or Most Recently Relevant to Health Maintenance Advance Directives * Full Code (Latest Code Status on File) Date Activated Date Inactivated Comments 02/13/2011 1:57 PM 02/16/2011 1:55 PM Care Teams Cardiologist Relationship Specialty Start Date End Date Padmini Raines DO [address] [place] [address] PCP - General Family Practice 10/23/23
--- NOTE | 2024-04-28 09:15 | CRLHL7_ITS ---
For Patients: As a result of the Century Cures Act, medical imaging exams and procedure reports are released immediately into your electronic medical record. You may view this report before your referring provider. If you have questions, please contact your health care provider. Technique: Double-contrast upper GI performed after the uneventful administration of effervescent crystals and thick barium followed by thin barium. Small-bowel follow-through then performed. Fluoroscopy time 2 minutes 24 seconds. Indication: Small-bowel obstruction Comparison: CT 01/10/2023 Findings: Esophagus: Normal morphology and motility. No stricture or mass. Gastroesophageal reflux: None. Stomach: Normal gastric mucosal pattern. No hiatal hernia. Small bowel: Normal duodenal C-loop. Normal jejunal folds. Unremarkable ileum and in particular normal terminal ileum. No evidence of malrotation. No obstruction. Small bowel transit time less than 30 minutes. Impression: Normal upper GI and small-bowel follow-through. Dictated by Paco Perdomo MD @ 04/28/2024 10:18:25 AM (Electronically Signed)
== END 2024-04-28 08:58 | disposition home or self-care (01) ==
LOC: RAD 08:58
PROVIDERS: PCP Family Medicine; Visit Provider Surgery
DX: K56.609 Unspecified intestinal obstruction, unspecified as to partial versus complete obstruction (principal)
CPT/HCPCS: 74246; 74248

== ENCOUNTER 2024-05-02 06:12 | Inpatient (IN) | payer OTHER, SELFPAY ==
[2024-05-02] VITALS (23 sets, daily range): BP systolic 104–135; BP diastolic 63–97; PULSE 56–95; RESP 14–19; TEMP 36.5–37.4; O2SAT 87–99; BMI 23.4
--- OUTSIDE RECORDS SUMMARY | 2024-05-02 06:17 | XMS_ITS | Clinical Summary ---
Author Organization [facility] Address [place], [place] [address] Care Team Providers Care Mmi Teacher Name Role Phone Padmini Raines Primary Care Provider [phone] Allergies No known active allergies Medications Medication [...] Description 04/27/2024 3:00 PM CDT Preop Visit [facility] [address] [facility] [place] [address] Padmini Raines, Preoperative Exam (04/28 barium enema, 05/02/24 laparoscopic ileocecectomy - [facility] - Dr. House) 04/27/2024 Travel 04/20/2024 Orders Only [facility] Scanner 1 scan: (1-Ord) RICARDO DERMATOLOGY, PAYTONVE BIOPSY, 04/20/2024 04/19/2024 Telephone [facility] [address] [facility] [place] [address] Mauricio House MD Pre Procedure (Go-lytly prep) 04/18/2024 4:30 PM CDT Office Visit [facility] [address] [facility] [place] [address] Mauricio House MD Consult (Cecal bascule, small bowel obstruction) 04/18/2024 Travel 04/18/2024 Orders Only [facility] [address] [facility] [place] [address] Padmini Raines DO <No scans attached> 04/13/2024 3:00 PM CDT Office Visit [facility] [address] [facility] [place] [address] Padmini Raines, Hospital F/U (Cecal bascule, bowel obstruction 03/31/24) 04/12/2024 Travel from Last 3 Months Immunizations Name Administration Dates Next Due AMB Influenza, IIV4 PF (=>6 mos Flulaval,Fluzone Fluarix)(Flu Clinic Only) 06/12/2020,06/26/2016,06/08/2015 Amb Influenza, Inact (High-d ose) (Flu Clinic Only) 06/23/2014 COVID-19 Vaccine Spikevax (M oderna 50mcg/0.5mL) 12YO+ 3671-1164 Formula PF 07/22/2023 COVID-19 vaccine (EarlySharesBio NTech 30mcg/0.3mL) 12YO+ BIVALENT PF, MDV 07/14/2022 COVID-19 vaccine (c-crowd-Bio NTech 30mcg/0.3mL) PF, MDV 12/29/2020,12/08/2020 Influenza, IIV3 [...] CDT Travel History Travel Start Travel End [place] 03/25/2024 04/11/2024 Obstetrics History Para Term AB IAB SAB Ectopic Multiple Livin g Live Births 1 1 1 1 1 Date Outcome GA Total Labor Labor/2nd/3rd Weight Sex Type Anes PTL Mitzi A1 A5 Name Clin 011 Term 41w 2d 3.86 kg (8 lb 8 oz) M C-Sec tion N Living Delivery Location:[facility] Comments:Emergent C-Se ction due to placental abruption. Transfused 4 U PRBCs & 2U FFP P del Last Filed Vital Signs Vital Sign Reading Time Taken Comments Blood Pressure 126/86 04/27/2024 3:08 PM CDT Pulse 59 04/27/2024 3:08 PM CDT Temperature 36.9 ??C (98.4 ??F) 07/19/2021 1:40 PM CS T Respiratory Rate 12 07/19/2021 1:40 PM DIRECTOR OF SALES SUPPORT Oxygen Saturation 97% 04/27/2024 3:08 PM CDT Inhaled Oxygen Concentration - - Weight 60 kg (132 lb 4.8 oz) 04/27/2024 3:08 PM CDT Height 159.2 cm (5' 2.68) 10/19/2023 1:08 PM CS T Body Mass Index 23.68 10/19/2023 1:08 PM DIRECTOR OF SALES SUPPORT Plan of Treatment Health Maintenance Due Date Last Done Comments Hepatitis C screening for age 18-79 1994 Depression screening for age 12+ 02/27/2022 02/27/2021, 02/14/2020, 02/17/2019, Additional history exists Mammogram for age 45-75 04/13/2024 04/13/20 23, 03/13/2022, 03/08/2021 Influenza for age 9-49 05/08/2024 [...] 9:46 AM CDT Screening for lipid disorders MIXING TANK OPERATOR THIN PREP PAP DIAGNOSTIC IMAGED Routine 02/27/2021 [...] For Patients: As a result of the Cures Act, medical imaging exams and procedure reports are released immediately into your electronic medical record. You may view this report before your referring provider. If you have questions, please contact your health care provider. XR MAMMO PENG BILAT SCREEN [[id number]] CLINICAL HISTORY: ??This is an asymptomatic 47 y.o. patient. INDICATION FOR EXAM: Mammogram Screening. TECHNIQUE: CC & MLO views were obtained. ??This study was evaluated with the assistance of Computer-Aided Detection. Breast Tomosynthesis was used in interpretation. COMPARISON FILM: Yes 03/13/22 [facility] 03/08/21 [facility] FINDINGS: ??The breasts are heterogeneously dense, which [...] Proceduralist: Eleazar Gallagher MD , Uzma Avila, RN (Nurse), Kassie Huerta (Nurse) Referring MD: Padmini [...] 10:00 AM Procedure Code(s): --- Professional --- 30115, Colonoscopy, flexible; diagnostic, including collection of specimen(s) bybrushing or washing, when performed (separateprocedure) Diagnosis Code(s): --- Professional --- Z80.0, Family history of malignant neoplasmof digestive organs Q43.8, Other specified congenitalmalformations of intestine CPT copyright 2020 [employer]. All rights reserved. The codes documented in this report are preliminary and upon health program analyst reviewmay be revised to meet current compliance requirements. Scope In: 11:01:47 AM Scope Withdrawal Time 0 hours 6 minutes 30 seconds Scope Out: 11:39:09 AM Eleazar Gallagher MD PROCEDURE ORD * (ABNORMAL) LIPID PANEL W REFLEX MEASURED LDL (02/27/2021 9:46 AM CDT) CHOLESTEROL,TOTAL 219(H) 100 - 199 mg/dL 02/27/2021 6:03 PM CDT [facility] TRAL LABORATORY TRIGLYCERIDES 47 <150 mg/dL 02/27/2021 6:03 PM CDT [facility] TRAL LAB[facility] HDL CHOLESTEROL 106 >40 mg/dL 6:03 PM CDT [facility] TRAL LABORATORY NON-HDL CHOLESTEROL 113 <145 mg/dl 02/27/2021 6:03 PM CDT [facility] TRA LABORATORY CHOL/HDL RATIO 2.07 <4.50 02/27/2021 6:03 PM CDT [facility] TRAL LABORATORY LDL CHOLESTEROL 104 <=130 mg/dL 02/27/2021 6:03 PM CDT [facility] TRAL LABORATORY VLDL CHOLESTEROL 9 mg/dL 02/28/20 6:03 PM CDT [facility] PROVIDER ORDERED STATUS RANDOM 02/27/2021 6:03 PM CDT [facility] Blood BLOOD SPECIMEN / Unknown Venipuncture / Unknown 02/27/2021 9:46 AM CDT 02/27/2021 9:46 AM CDT Yulissa FRANK CHEMISTRY [facility] [address] [place] [address], * MIXING TANK OPERATOR THIN PREP PAP DIAGNOSTIC IMAGED (02/27/2021 9:29 AM CDT) Case Report Gynecologic Cytology Report ? Case: [id number] ? Authorizing Provider: ??Yulissa Leach PA ?Collected: ? 02/27/2021 0929 ? Ordering Location: ? [facility] ?? Received: ?02/27/2021 1012 ? Clinic ? First Screen: ?Becca Dangelo ? Rescreen: ?Katlin Moore ? Specimen: ?MIXING TANK OPERATOR ThinPrep Vial Diagnostic, Cervical ? 03/11/2021 10:13 AM CDT [facility] INTERPRETATION/ RESULT NEGATIVE FOR INTRAEPITHELIAL LESION OR MALIGNANCY (NIL) (none) 03/11/2021 10:13 AM T [facility]-C ENTRAL LABORATORY NISM(S) Shift in sajan suggestive of bacterial vaginosis 03/11/2021 10:13 AM CDT [facility]AL LABORATORY SPECIMEN ADEQUACY Satisfactory for evaluation No endocervical component seen 03/11/2021 10:13 AM CDT [facility]-C ENTRAL LABORATORY HPV REQUEST HPV and PAP 03/11/2021 10:13 AM CDT [facility]TRAL LABORATORY Date of LMP 02/14/21 03/11/2021 10:13 AM CDT [facility]-C ENTRAL LABORATORY Last Pap Date 09/25/16 03/11/2021 10:13 AM CDT [facility]-C ENTRAL LABORATORY Last Pap Result ASCUS 10:13 AM CDT [facility]-C ENTRAL LABORATORY Abnormal Pap or Henriette Bx in last 5 years Yes 03/11/2021 10:13 AM CDT [facility] Menstrual Status Regular Periods 03/11/2021 10:13 AM CDT [facility] Henriette Bx Done Today No 03/11/2021 10:13 AM CDT [facility] Additional Information None Given 03/11/2021 10:13 AM CDT [facility] Comment: Cytology is screened at [facility] - [address], [place] [address] and [facility] - [address], [place] [address] [facility] - [address] [place] [address] Interpreted at [facility] - [address], [place] [address] Automated Review Successful 03/11/2021 10:13 AM CDT [facility] Comment:Specimen processed s uccessfully by automated personal clothing laundry aide device, ThinPrep Imaging System, [employer] ANCILLARY TESTING MIXING TANK OPERATOR HPV Ordered, Please see separate report 03/11/2021 10:13 AM CDT [facility] Note The pap test is [...] pre-malignant and malignant lesions. 03/11/2021 10:13 AM CDT [facility] Other (Cervical) Non-Blood / Unknown 02/27/2021 9:29 AM CDT 02/27/2021 10:12 AM CDT Yulissa FRANK PATHOLOGY/CYTOLOGY [facility] [address] [place] [address], [place] * OCCULT BLOOD IFOBT STOOL (04/13/2018 2:53 PM CDT) STOOL BLOOD ,IFOBT Negative Negative 04/13/2018 3:42 PM CDT [facility] Stool STOOL SPECIMEN / Unknown Non-Blood / Unknown 04/13/2018 2:53 PM CDT 04/13/2018 3:27 PM CDT Yulissa FRANK LABORATORY [facility] [address] [place] [address], * HIV (06/13/2010 11:29 AM CDT) Pathologist [facility] ANTI HIV 1/2 Non-reacti ve [facility] Blood specimen (specimen) BLOOD SPECIMEN / Unknown 06/13/2010 11:29 AM CDT 06/13/2010 11:22 AM CDT Ese Gordon LOOP TACKER SEND OUTS Performing Organization Address City/[facility]/ZIP Co de Phone Number [facility] INTERNAL ZIP [phone] [address] from Last 3 Months or Most Recently Relevant to Health Maintenance Advance Directives * Full Code (Latest Code Status on File) Date Activated Date Inactivated Comments 02/13/2011 1:57 PM 02/16/2011 1:55 PM Care Teams Mmi Teacher Relationship Specialty Start Date End Date Padmini Raines DO [address] [place] [id number] PCP - General Family Practice 10/23/23
[2024-05-02 06:43] LABS: Ur HCG Qualitative* Negative (Negative)
[2024-05-02] MEDS: SODIUM CHLORIDE 0.9 % (FLUSH) 10 ML SYRINGE IVF (06:45)
[2024-05-02] MEDS: LACTATED RINGERS 1000 ML 1,000 ML 100 ML IV ×5 (06:45→16:54)
--- NOTE | 2024-05-02 07:29 | W.PM.H&PU ---
History & Physical Update History & Physical Update H&P Reviewed and patient assessed: No changes noted
[2024-05-02] MEDS: ERTAPENEM 1 GM inj IVPB (07:45)
--- OUTSIDE RECORDS SUMMARY | 2024-05-02 07:57 | XMS_ITS | Clinical Summary ---
Author Organization [employer] [facility] Address [place], [place] [address] Care Team Providers Care Sharples Machine Operator Name Role Phone Padmini Raines Primary Care Provider [phone] Allergies No known active allergies Medications Medication [...] Description 04/27/2024 3:00 PM CDT Preop Visit [facility] [address] [facility] [place] [address] Pdamini Raines, Preoperative Exam (04/28 barium enema, 05/02/24 laparoscopic ileocecectomy - [facility] - Dr. House) 04/27/2024 Travel 04/20/2024 Orders Only [facility] Scanner 1 scan: (1-Ord) RICARDO DERMATOLOGY, PAYTONVE BIOPSY, 04/20/2024 04/19/2024 Telephone [facility] [address] [facility] [place] [address] Mauricio House MD Pre Procedure (Go-lytly prep) 04/18/2024 4:30 PM CDT Office Visit [facility] [address] [facility] [place] [address] Mauricio House MD Consult (Cecal bascule, small bowel obstruction) 04/18/2024 Travel 04/18/2024 Orders Only [facility] [address] [facility] [place] [address] Padmini Raines DO <No scans attached> 04/13/2024 3:00 PM CDT Office Visit [facility] [address] [facility] [place] [address] Padmini Raines, Hospital F/U (Cecal bascule, bowel obstruction 03/31/24) 04/12/2024 Travel from Last 3 Months Immunizations Name Administration Dates Next Due AMB Influenza, IIV4 PF (=>6 mos Flulaval,Fluzone Fluarix)(Flu Clinic Only) 06/12/2020,06/26/2016,06/08/2015 Amb Influenza, Inact (High-d ose) (Flu Clinic Only) 06/23/2014 COVID-19 Vaccine Spikevax (M oderna 50mcg/0.5mL) 12YO+ [id number] Formula PF 07/22/2023 COVID-19 vaccine (UMicItBio NTech 30mcg/0.3mL) 12YO+ BIVALENT PF, MDV 07/14/2022 COVID-19 vaccine ([employer]-Bio NTech 30mcg/0.3mL) PF, MDV 12/29/2020,12/08/2020 Influenza, IIV3 [...] CDT Travel History Travel Start Travel End [place] 03/25/2024 04/11/2024 Obstetrics History Para Term AB IAB SAB Ectopic Multiple Livin g Live Births 1 1 1 1 1 Date Outcome GA Total Labor Labor/2nd/3rd Weight Sex Type Anes PTL Mitzi A1 A5 Name Clin 011 Term 41w 2d 3.86 kg (8 lb 8 oz) M C-Sec tion N Living Delivery Location:[facility] Comments:Emergent C-Se ction due to placental abruption. Transfused 4 U PRBCs & 2U FFP P del Last Filed Vital Signs Vital Sign Reading Time Taken Comments Blood Pressure 126/86 04/27/2024 3:08 PM CDT Pulse 59 04/27/2024 3:08 PM CDT Temperature 36.9 ??C (98.4 ??F) 07/19/2021 1:40 PM CS T Respiratory Rate 12 07/19/2021 1:40 PM GRILL ASSOCIATE Oxygen Saturation 97% 04/27/2024 3:08 PM CDT Inhaled Oxygen Concentration - - Weight 60 kg (132 lb 4.8 oz) 04/27/2024 3:08 PM CDT Height 159.2 cm (5' 2.68) 10/19/2023 1:08 PM CS T Body Mass Index 23.68 10/19/2023 1:08 PM GRILL ASSOCIATE Plan of Treatment Health Maintenance Due Date [...] 9:46 AM CDT Screening for lipid disorders ADMISSION DISCHARGE RN THIN PREP PAP DIAGNOSTIC IMAGED Routine 02/27/2021 [...] care provider. XR MAMMO PENG BILAT SCREEN [[id number]] CLINICAL HISTORY: ??This is an asymptomatic 47 y.o. patient. INDICATION FOR EXAM: Mammogram Screening. TECHNIQUE: CC & MLO views were obtained. ??This study was evaluated with the assistance of Computer-Aided Detection. Breast Tomosynthesis was used in interpretation. COMPARISON FILM: Yes 03/13/22 [facility] 03/08/21 [facility] FINDINGS: ??The breasts are heterogeneously dense, [...] 10:00 AM Procedure Code(s): --- Professional --- 24405, Colonoscopy, flexible; diagnostic, including collection of specimen(s) bybrushing or washing, when performed (separateprocedure) Diagnosis Code(s): --- Professional --- Z80.0, Family history of malignant neoplasmof digestive organs Q43.8, Other specified congenitalmalformations of intestine CPT copyright 2020 [employer]. All rights reserved. The codes documented in this report are preliminary and upon professional fee coder reviewmay be revised to meet current compliance requirements. Scope In: 11:01:47 AM Scope Withdrawal Time 0 hours 6 minutes 30 seconds Scope Out: 11:39:09 AM Eleazar Gallagher MD PROCEDURE ORD * (ABNORMAL) LIPID PANEL W REFLEX MEASURED LDL (02/27/2021 9:46 AM CDT) CHOLESTEROL,TOTAL 219(H) 100 - 199 mg/dL 02/27/2021 6:03 PM CDT [facility] TRAL LABORATORY TRIGLYCERIDES 47 <150 mg/dL 02/27/2021 6:03 PM CDT [facility] TRAL LABORATORY HDL CHOLESTEROL 106 >40 mg/dL 6:03 PM CDT [facility] TRAL LABORATORY NON-HDL CHOLESTEROL 113 <145 mg/dl 02/27/2021 6:03 PM CDT [facility] TRA LABORATORY CHOL/HDL RATIO 2.07 <4.50 02/27/2021 6:03 PM CDT [facility] TRAL LABORATORY LDL CHOLESTEROL 104 <=130 mg/dL 02/27/2021 6:03 PM CDT [facility] TRAL LABORATORY VLDL CHOLESTEROL 9 mg/dL 02/28/20 6:03 PM CDT [facility] TRA LABORATORY PROVIDER ORDERED STATUS RANDOM 02/27/2021 6:03 PM CDT [facility] Blood BLOOD SPECIMEN / Unknown Venipuncture / Unknown 02/27/2021 9:46 AM CDT 02/27/2021 9:46 AM CDT Yulissa FRANK CHEMISTRY [facility] [address] [place] [address], * ADMISSION DISCHARGE RN THIN PREP PAP DIAGNOSTIC IMAGED (02/27/2021 9:29 AM CDT) Case Report Gynecologic Cytology Report ? Case: [id number] ? Authorizing Provider: ??Yulissa Leach PA ?Collected: ? 02/27/2021 0929 ? Ordering Location: ? [facility] ?? Received: ?02/27/2021 1012 ? Clinic ? First Screen: ?Becca Dangelo ? Rescreen: ?Katlin Moore ? Specimen: ?ADMISSION DISCHARGE RN ThinPrep Vial Diagnostic, Cervical ? 03/11/2021 10:13 AM CDT [facility] LAB[facility]AT[facility] INTERPRETATION/ RESULT NEGATIVE FOR INTRAEPITHELIAL LESION OR MALIGNANCY (NIL) (none) 03/11/2021 10:13 AM T [facility]OR[facility]-C ENTRAL LABORATORY NISM(S) Shift in sajan suggestive of bacterial vaginosis 03/11/2021 10:13 AM CDT [facility] ENTRAL LABORATORY SPECIMEN ADEQUACY Satisfactory for evaluation No endocervical component seen 03/11/2021 10:13 AM CDT [facility]-C ENTRAL LABORATORY HPV REQUEST HPV and PAP 03/11/2021 10:13 AM CDT [facility] LAB[facility]ATORY Date of LMP 02/14/21 03/11/2021 10:13 AM CDT [facility]-C ENTRAL LABORATORY Last Pap Date 09/25/16 03/11/2021 10:13 AM CDT [facility]-C ENTRAL LABORATORY Last Pap Result ASCUS 10:13 AM CDT [facility]-C ENTRAL LABORATORY Abnormal Pap or [place] Bx in last 5 years Yes 03/11/2021 10:13 AM CDT [facility] Menstrual Status Regular Periods 03/11/2021 10:13 AM CDT [facility] [place] Bx Done Today No 03/11/2021 10:13 AM CDT [facility] Additional Information None Given 03/11/2021 10:13 AM CDT [facility] EN[facility]MS LABORAT[facility] Comment: Cytology is screened at [facility] - [address], [place] [address] and [facility] - [address], [place] [address] and [facility] - [address] [place] [address] Interpreted at [facility] - [address], [place] [address] Automated Review Successful 03/11/2021 10:13 AM CDT [facility] Comment:Specimen processed s uccessfully by automated it network architect device, ThinPrep Imaging System, [employer] ANCILLARY TESTING ADMISSION DISCHARGE RN HPV Ordered, Please see separate report 03/11/2021 10:13 AM CDT [facility] Note The pap test is a [...] and malignant lesions. 03/11/2021 10:13 AM CDT [facility] Other (Cervical) Non-Blood / Unknown 02/27/2021 9:29 AM CDT 02/27/2021 10:12 AM CDT Yulissa FRANK PATHOLOGY/CYTOLOGY [facility] [address] [place] [address], [place] * OCCULT BLOOD IFOBT STOOL (04/13/2018 2:53 PM CDT) STOOL BLOOD ,IFOBT Negative Negative 04/13/2018 3:42 PM CDT [facility] Stool STOOL SPECIMEN / Unknown Non-Blood / Unknown 04/13/2018 2:53 PM CDT 04/13/2018 3:27 PM CDT Yulissa FRANK LABORATORY [facility] [address] [place] [address], * HIV (06/13/2010 11:29 AM CDT) Pathologist [facility] ANTI HIV 1/2 Non-reacti ve [facility] Blood specimen (specimen) BLOOD SPECIMEN / Unknown 06/13/2010 11:29 AM CDT 06/13/2010 11:22 AM CDT Ese Gordon COBOL DEVELOPER SEND OUTS Performing Organization Address City/[facility]/ZIP Co de Phone Number [facility] INTERNAL ZIP [phone] [address] from Last 3 Months or Most Recently Relevant to Health Maintenance Advance Directives * Full Code (Latest Code Status on File) Date Activated Date Inactivated Comments 02/13/2011 1:57 PM 02/16/2011 1:55 PM Care Teams Sharples Machine Operator Relationship Specialty Start Date End Date Padmini Raines DO [address] [place] [address] PCP - General Family Practice 10/23/23
[2024-05-02] MEDS: BUPIVACAINE 0.25% 30 ML INJECTION (08:27)
--- NOTE | 2024-05-02 08:45 | P.NB_ITS ---
Nerve Block Nerve Block Time Seen by Provider: 07:48 Date Seen: 05/02/24 Type of block requested by surgeon for post-operative analgesia: TAP Side: bilateral Time out performed: Yes Verification of patient name: Yes Verification of date of : Yes Site marking: site marked Name of person performing procedure: Jona Continuous monitoring Was continuous monitoring of O2 sat, B/P, monitor and storage bin tender, recorded every 15 minutes?: Yes Procedure Checklist: sterile prep, needles and gloves Ultrasound guided. Images saved: Yes Medications given in 5ml increments after negative aspiration: Marcaine %: 0.25 mL: 30 Needle gauge: 20 and Exparel mL: 10 Patient tolerated procedure well: Yes Additional comments: Needle noted between internal oblique and transversus abdominus. Local spread visualized Block Charges Block Charge (with Pro Fee): TAP Bilateral Use of Ultrasound Machine for Block: Yes- US Guidance/pain block
--- NOTE | 2024-05-02 08:45 | W.ANESCHARGE ---
Anesthesia Charges Start Date/Time Anesthesia Start Date: 05/02/24 Anesthesia Start Time: 07:30 Stop Date/Time Anesthesia Stop Date: 05/02/24 Anesthesia Stop Time: 10:58
--- NOTE | 2024-05-02 10:57 | W.ANESCHARGE ---
Anesthesia Charges Start Date/Time Anesthesia Start Date: 05/02/24 Anesthesia Start Time: 07:30 Stop Date/Time Anesthesia Stop Date: 05/02/24 Anesthesia Stop Time: 10:58
--- NOTE | 2024-05-02 11:14 | P.GSOP_ITS ---
Operative Note Date of procedure: 05/02/24 Pre-op diagnosis: 1. Recurrent cecal bascule. Post-op diagnosis: 1. Floppy redundant cecum. Type of Procedure: 1. Laparoscopic ileocecectomy. Indications: 48-year-old female was seen in clinic for evaluation of recent ER visit at the outside hospital for probable cecal bascule. Patient states that when she was on vacation in a different state she developed right lower quadrant abdominal pain that was persistent and not resolving. Patient's pain was similar to her episode in January of 2024 when she was seen at the [facility]. During her emergency room visit in January of 2024 she had an abdominal CT that showed possible small bowel volvulus in the right lower quadrant. Patient was taken to the operating room for exploratory laparoscopy. She was found to have a twist at the ileocecal valve but no cecal volvulus and no cecal bascule. Her right lower quadrant peritoneum created a pocket of sorts where the cecum was sitting. During that surgery she underwent lysis of adhesions and appendectomy. Postoperatively patient recovered well. Because of unusual CT presentation and intraoperative findings, she was advised to seek medical attention if her symptoms recurred. When she was vacationing in a different state she had recurrence of right lower quad pain. The CT images were not available for my review but the discharge paperwork mentioned possible concern for cecal bascule. Per patient the CT findings were not clear and the treating team was not sure what was causing her pain. Patient was also constipated and had multiple enemas that finally resulted in multiple bowel movements. Her pain has resolved after multiple bowel movements, and patient wished to come home without surgical intervention at the outside hospital. Patient was then seen in clinic here. She was pain free and was trying to keep her bowel movements regular. On clinical exam she had no tenderness to palpation and no peritoneal signs. 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 The procedure was discussed in detail. The risks associated procedure including infection, bleeding, anastomotic leak, and the need for additional procedures were all discussed with the patient, and she agreed to proceed. Patient also was referred for upper GI with small-bowel follow-through because of the unusual nature of the volvulus at the ileocecal valve in January. Her upper GI with small-bowel follow-through was normal with no evidence of masses at the ileocecal valve. Procedure Description: After discussing the risks and benefits of the procedure, the patient signed informed consent.? The operative site was marked and the patient was brought to the operating room and placed on the operating table in supine position.? Care was taken to pad the patient's pressure points.?? The patient was then intubated by anesthesia.? TAP blocks were administered by Anesthesia.? Fairchild catheter was inserted under sterile conditions. The operative site was then prepped and draped in the usual sterile fashion.? A time-out was then performed. A 5-mm laparoscopy port was placed in the left upper quadrant guided by a 5-mm laparoscope placed into a translucent trochar. Passage through the layers of the abdominal wall was visualized with the laparoscope. A pneumoperitoneum was established. A 30-degree 5-mm laparoscope was advanced into the abdomen. The abdomen was briefly surveyed, and there was no evidence of adhesions. A 12-mm port and a 5-mm port were placed in the left low quadrant and suprapubically, respectively, under direct visualization by laparoscope. An additional 5 mm port was placed supraumbilically under direct visualization. Left upper quadrant entrance port was then examined intraabdominally by placing the camera through the left lower quadrant port and no intraabdominal injury was seen. The cecum was identified and terminal ileum was identified and retracted medially. The cecum was very floppy and redundant. Adhesions of the terminal ileum and the cecum to the lateral abdominal wall were noted. Those adhesions were taken down with Harmonic scalpel. The right ureter was visualized and was away from our dissection. This dissection was continued laterally along the White line of [place]oldt with Harmonic scalpel. When the terminal ileum and cecum was free from the lateral abdominal wall, we then directed our attention to the transverse colon. The ascending colon was fairly sharp and I elected to mobilize the hepatic flexure for a tension-free anastomosis. The omentum was g rasped and retracted caudad. Avascular plane was identified between the omentum and transverse colon. This was incised with Harmonic scalpel. This dissection was carried towards the hepatic flexure with Harmonic scalpel. The duodenum was clearly visualized and care was taken not to injure duodenum. The dissection was carried around the hepatic flexure to the lateral abdominal wall with Almanzar ic scalpel. When the right colon was mobile laterally, we proceeded with identifying the ileal colic vascular pedicle. The cecum was retracted towards the abdominal wall. The ileo colic vascular pedicle was easily identified. The peritoneum over the vascular pedicle was scored with Harmonic scalpel. The vascular pedicle was skeletonized circumferentially with Harmonic scalpel. It was then stapled with a vascular load of Endo-RAYSA stapler. When the stapler was removed, the staple line was examined. Bleeding was seen from the staple line and that was controlled with 5 mm vascular clips. The right colon mesentery dissection was then carried towards the hepatic flexure with the Harmonic scalpel. The right colon and terminal ileum were then examined and were mobile for anastomosis. We then proceeded with extracorporeal portion of this procedure. The terminal ileal fat pad was grasped with a locking grasper. A midline supraumbilical incision was made with a scalpel just superior to the previously placed 5 mm port. Subcutaneous fat and fascia were divided with cautery until the abdomen was entered. The supraumbilical 5 mm port was removed and the fascial opening was extended superiorly. A small Solis retractor was then placed into this supraumbilical midline incision. The cecum, ascending colon, and terminal ileum were eviscerated and were very mobile. No bleeding was noted from mesentery. The terminal ileum just proximal to the ileal fat pad was elected as a point for division of ileum. The terminal ileal mesentery distal to that area was then divided with clamps and Vicryl ties. The distal descending at the hepatic flexure was elected as the spot to divide the transverse colon. The ascending colon was fairly short. All laparoscopic instruments were covered with towels. A blue load of RAYSA stapler was then used to divide terminal ileum and transverse colon. The ileocectomy was then passed off the field and sent to pathology. Bleeding was seen from the transverse colon staple line and terminal ileal staple line, and that was controlled with multiple [id number] 3-0 silk sutures. We then continued with side to side functional end to end ileocolic anastomosis. A stay suture was placed using 3-0 silk near the ileal and colonic staple lines. The enterotomy was then made less than 1 cm proximal to the ileal staple line with cautery. One arm of the RAYSA stapler was placed into the ilium. A colotomy was then made less than 1 cm distal to the colonic staple line, and the second arm of the RAYSA stapler was placed into the colon. The transverse colon and terminal ileum were lined up on the anti mesenteric side to create the anastomosis. The anastomosis was then created with a blue load of 100 RAYSA stapler. The staple line was examined from the inside and bleeding was identified. The anastomosis was everted and anterior and posterior staple lines were examined. Bleeding was seen from the staple line and that was oversewn wi th multiple [id number] 3-0 silk sutures. The common enterotomy was then closed with interrupted Lembert sutures using 3-0 silk. 2 crotch stitches were placed. The anastomosis was well perfused and was patent on palpation. I was able to easily identify the mesenteric defect. This was closed with 3-0 Vicryl suture. At this point the anastomosis was placed into the abdomen, and we removed all the dirty instruments and towels from the field. The Hattie retractor was removed, surgeon and all assistants changed gloves, and we proceeded with midline laparotomy fascial closure. The supraumbilical midline laparotomy fascia was then closed with 2 running 0-0 Maxon sutures. The abdomen was then insufflated again with carbon dioxide. Anastomosis was examined and was in the right upper quadrant. No bleeding was identified in the surgical field. The 12-mm port was withdrawn and the fascial defect was closed with 0-0 Vicryl using Shine Radha needle under direct visualization. The 5-mm ports were removed under direct visualization. The left upper quadrant port was used to evacuate the pneumoperitoneum and then withdrawn. Additional local anesthetic was injected at all of the incisions. Subcutaneous fat and dermis of the supraumbilical laparotomy incision were reapproximated with 3-0 Vicryl sutures. The skin incisions were closed with 4-0 monocryl. Steri-Strips and sterile pressure dressings were applied over the incisions. All counts were correct at the end of the case. The patient tolerated this procedure well and was transferred to PACU in stable condition. Findings: Floppy redundant cecum well perfused. Short ascending colon. The hepatic flexure was mobilized for ileocolic anastomosis. Anesthesia: GETA Surgeon: Mauricio House MD Estimated blood loss (mL): 20 Additional Specimen Information: 1. Ileocecectomy. Condition: stable Disposition: PACU
[2024-05-02] MEDS: fentaNYL 100 MCG/2 ML inj 50 MCG IVP (11:20)
--- NOTE | 2024-05-02 11:28 | SUR.PHASEI ---
Patient sleepy when arriving to PACU. O2 in the upper 80s when falling asleep. Oxygen applied by cannula, comfortable at this time. When patient was more awake, pain level a 5 and wanted medication, fentanyl 50mcg given and pain was reduced. Patient is now 95 - 98% O2 saturation off oxygen. Patient meets discharge criteria from PACU
[2024-05-02] MEDS: HYDROmorphone 0.5 mg/0.5 ml inj IVP ×3 (12:46→21:41)
--- NOTE | 2024-05-02 18:39 | PC.NURSE ---
Pt arrived from surgery at 1145. Pt has slept most of shift since coming back from surgery. Pt had complaints of pain ranging from 0-6; see EMAR for intervention. Pt has a mid-abdominal incision, dry, and intact. Pt had two sets of steri strips; intact. Pt?s VS WNL. Pt was brought back from surgery on 2 Liters and is weaned while awake. Pt on 1-2 Liters while sleeping and maintains mid 90?s- Pt on RA while awake and maintains mid 90?s.?Pt is on a clear liquid diet and tolerating well. Pt had no complaints of nausea. Pt?s at bedside throughout shift. Pt up with SBA and gait belt; Pt tolerated well. Pt has not voided yet but has attempted once at 1810.
[2024-05-03] VITALS (10 sets, daily range): BP systolic 97–128; BP diastolic 59–79; PULSE 69–77; RESP 14–16; TEMP 36.9–37.6; O2SAT 93–98
[2024-05-03] MEDS: LACTATED RINGERS 1000 ML 1,000 ML 100 ML IV ×3 (00:26→19:09)
[2024-05-03] MEDS: HYDROmorphone 0.5 mg/0.5 ml inj IVP ×9 (02:53→23:03)
--- NOTE | 2024-05-03 06:24 | PC.NURSE ---
SHIFT NOTE 23-07: Pt A&O, pleasant. PRN Dilaudid given for pain with pt reporting adequate relief. Pt up to the BR x3 overnight SBA to attempt to urinate and was unable, called Dr. Wiley and received order to straight cath, pt straight cath with output of 600ml, tolerated well. Denies N/V, SOB, CP. Pt using IS independently. Tolerating a clear liquid diet.
--- NOTE | 2024-05-03 07:59 | PM.GSPN ---
Subjective Subjective Date Seen: 05/03/24 Interval history: Patient is doing well postoperatively. She tolerated some clears yesterday with no nausea vomiting. She is not passing gas. Her abdominal pain is controlled with pain medications. She had urinary retention last night and was straight cathed once for 600 mL of urine. Exam Narrative: Exam Narrative: Abdomen is soft, not distended, tender to palpation in the left lower quadrant. Surgical incisions are covered with clean dressings. There is small amount of dried blood superior to the suprapubic incision. Const: Vital Signs, click to edit/add: Vital Signs - 24 hr 05/02/24 10:58 05/02/24 11:05 05/02/24 11:10 Temperature 98.8 F Pulse Rate 82 56 L 58 L Pulse Rate [Bilate ral Radial] Pulse Rate [Pulse Oximeter] Respiratory Rate 16 16 19 Blood Pressure 127/78 129/83 130/83 Blood Pressure [Ri ght Arm] Pulse Oximetry 94 87 L 99 Oxygen Delivery Me thod Room Air Nasal Cannula Nasal Cannula Oxygen Flow Rate 3 3 05/02/24 11:15 05/02/24 11:20 05/02/24 11:25 Temperature Pulse Rate 66 58 L 57 L Pulse Rate [Bilate ral Radial] Pulse Rate [Pulse Oximeter] Respiratory Rate 16 14 14 Blood Pressure 135/78 132/83 126/84 Blood Pressure [Ri ght Arm] Pulse Oximetry 99 99 99 Oxygen Delivery Me thod Nasal Cannula Nasal Cannula Nasal Cannula Oxygen Flow Rate 3 3 3 05/02/24 11:30 05/02/24 11:35 05/02/24 11:45 Temperature 98.5 F 98.1 F Pulse Rate 66 68 58 L Pulse Rate [Bilate ral Radial] Pulse Rate [Pulse Oximeter] Respiratory Rate 17 17 14 Blood Pressure 120/79 122/78 123/75 Blood Pressure [Ri ght Arm] Pulse Oximetry 98 97 96 Oxygen Delivery Me thod Room Air Room Air Room Air Oxygen Flow Rate 0 0 0 05/02/24 12:00 05/02/24 12:14 05/02/24 12:29 Temperature 97.7 F 97.7 F 98.0 F Pulse Rate 62 63 61 Pulse Rate [Bilate ral Radial] Pulse Rate [Pulse Oximeter] Respiratory Rate 14 16 16 Blood Pressure 126/78 122/80 125/80 Blood Pressure [Ri ght Arm] Pulse Oximetry 98 98 98 Oxygen Delivery Me thod Nasal Cannula Nasal Cannula Nasal Cannula Oxygen Flow Rate 2 2 2 05/02/24 12:44 05/02/24 13:30 05/02/24 14:00 Temperature 97.8 F 97.9 F 98.0 F Pulse Rate 79 64 68 Pulse Rate [Bilate ral Radial] Pulse Rate [Pulse Oximeter] Respiratory Rate 16 16 16 Blood Pressure 128/76 122/75 119/75 Blood Pressure [Ri ght Arm] Pulse Oximetry 97 97 98 Oxygen Delivery Me thod Nasal Cannula Nasal Cannula Nasal Cannula Oxygen Flow Rate 2 2 2 05/02/24 14:20 05/02/24 15:00 05/02/24 16:00 Temperature 98.4 F 98.7 F Pulse Rate 66 60 Pulse Rate [Bilate ral Radial] Pulse Rate [Pulse Oximeter] Respiratory Rate 16 16 16 Blood Pressure 122/77 114/73 Blood Pressure [Ri ght Arm] Pulse Oximetry 98 97 96 Oxygen Delivery Me thod Room Air Room Air Room Air Oxygen Flow Rate 2 1 05/02/24 17:00 05/02/24 18:00 05/02/24 19:00 Temperature 98.8 F 98.6 F 99.3 F Pulse Rate 73 65 Pulse Rate [Bilate ral Radial] 88 Pulse Rate [Pulse Oximeter] 95 Respiratory Rate 16 16 16 Blood Pressure 113/97 H 104/70 Blood Pressure [Ri ght Arm] 116/68 Pulse Oximetry 96 97 95 Oxygen Delivery Me thod Room Air Room Air Room Air Oxygen Flow Rate 1 0 0 05/02/24 23:00 05/02/24 23:00 05/03/24 02:55 Temperature 98.8 F 98.8 F Pulse Rate Pulse Rate [Bilate ral Radial] 80 75 Pulse Rate [Pulse Oximeter] 94 Respiratory Rate 16 16 16 Blood Pressure Blood Pressure [Ri ght Arm] 110/63 117/75 Pulse Oximetry 94 94 93 Oxygen Delivery Me thod Room Air Room Air Room Air Oxygen Flow Rate 0 0 0 Progress Note:A&P Assessment and plan (1) S/P laparoscopy: Status: Acute Assessment and Plan: 48-year-old female s/p laparoscopic ileocecectomy for intermittent cecal volvulus POD 1. Patient is doing well. She had urinary retention and was straight cathed once. Will continue observing this and straight cathing as needed. This should improve with time. Since patient does not have return of bowel function, will keep her on clear liquid diet. Not ready to discharge. Will check her hemoglobin today.
[2024-05-03 08:37] LABS: Hemoglobin* 10.7 gm/dL (12.0-16.0)
[2024-05-03] MEDS: SODIUM CHLORIDE 0.9 % (FLUSH) 10 ML SYRINGE 5 ML IVF ×3 (14:55→18:45)
--- NOTE | 2024-05-03 19:07 | PC.NURSE ---
Pt is pleasant, alert, oriented and vitally stable. Pain ranging from 2-6/10, see mar for interventions. Pt is up walking (4x around the dorantes), tolerating well. She is also voiding well, see I&O. Clear liquid diet, tolerating well. Dressings are clean, dry and intact. Steri strips have scant amounts of dry blood. ?
[2024-05-03] MEDS: ACETAMINOPHEN 325 MG TABLET 650 MG PO (23:03)
[2024-05-04] VITALS (8 sets, daily range): BP systolic 131–142; BP diastolic 85–93; PULSE 65–75; RESP 16–18; TEMP 36.8–37.5; O2SAT 93–98
[2024-05-04] MEDS: SODIUM CHLORIDE 0.9 % (FLUSH) 10 ML SYRINGE 5 ML IVF (02:17)
[2024-05-04] MEDS: HYDROmorphone 0.5 mg/0.5 ml inj IVP (02:17)
[2024-05-04] MEDS: LACTATED RINGERS 1000 ML 1,000 ML 100 ML IV (05:05)
--- NOTE | 2024-05-04 06:17 | PC.NURSE ---
End of shift [id number]: A&O pleasant and cooperative. VSS. Rating pain in abdomen 2-6 overnight. See eMAR for interventions. Up at shahrzad and ambulated? in dorantes multiple times throughout shift. Pt voiding adequate amounts. Pt denies passing gas. Denies n/v. Using call light appropriately.??
[2024-05-04 06:26] LABS: Hemoglobin* 10.5 gm/dL (12.0-16.0)
[2024-05-04] MEDS: HYDROCODONE-ACETAMIN 5-325 MG 1 TAB PO ×3 (08:26→20:36)
--- NOTE | 2024-05-04 10:03 | PM.GSPN ---
Subjective Subjective Date Seen: 05/04/24 Interval history: Patient is doing well. Her pain is well controlled with pain medication. She has been transitioning to p.o. pain medication. She has been ambulating a lot. She urinated on her round multiple times. She is tolerating clears with no nausea or vomiting. She is not passing gas yet. Exam Narrative: Exam Narrative: Abdomen is soft, not distended, minimally tender to palpation. Surgical incisions are covered with dry Steries. There is no surrounding erythema. Const: Vital Signs, click to edit/add: Vital Signs - 24 hr 05/03/24 10:21 05/03/24 14:21 05/03/24 14:59 Temperature 99.0 F 98.4 F Pulse Rate [Pulse Oximeter] 69 74 Respiratory Rate 14 16 16 Blood Pressure [Ri ght Arm] 97/59 L 123/69 Pulse Oximetry 93 93 98 Oxygen Delivery Me thod Room Air Room Air Room Air Oxygen Flow Rate 0 05/03/24 19:06 05/03/24 20:30 05/03/24 22:52 Temperature 99.7 F H 98.7 F 98.7 F Pulse Rate [Pulse Oximeter] 72 77 Respiratory Rate 16 16 Blood Pressure [Ri ght Arm] 128/79 125/77 Pulse Oximetry 94 94 Oxygen Delivery Me thod Room Air Room Air Oxygen Flow Rate 05/03/24 22:56 05/04/24 02:11 05/04/24 07:00 Temperature 98.6 F Pulse Rate [Pulse Oximeter] 75 Respiratory Rate 16 16 16 Blood Pressure [Ri ght Arm] 136/91 H Pulse Oximetry 94 93 97 Oxygen Delivery Me thod Room Air Room Air Room Air Oxygen Flow Rate 0 0 05/04/24 07:45 Temperature 99.5 F Pulse Rate [Pulse Oximeter] 71 Respiratory Rate 16 Blood Pressure [Ri ght Arm] 131/87 Pulse Oximetry 97 Oxygen Delivery Me thod Room Air Oxygen Flow Rate Progress Note:A&P Assessment and plan (1) S/P laparoscopy: Status: Acute Assessment and Plan: 48-year-old female s/p laparoscopic ileocecectomy POD 2. Patient is recovering well. She is tolerating clears but denies passing gas yet. Will advance her to full liquid diet. Patient's hemoglobin is stable at 10 yesterday in 10 today. Patient is ambulating. Possible home tomorrow.
--- NOTE | 2024-05-04 14:52 | PC.NURSE ---
Shift [id number]: Pt is pleasant, alert, oriented and vitally stable. Pain ranging from 2-6/10, see mar for interventions. Pt is up walking independently (4x around the dorantes), tolerating well. She is also voiding well, see I&O. Advanced to full?liquid diet, tolerating well. Dressings are clean, dry and intact. Midline bandage was removed by surgeon this morning, the steri strips underneath are dry and intact. Other abdominal lap sites steri strips have scant amounts of dry blood. She is now saline locked in the right hand.?Pt is tolerating PO pain meds.
--- NOTE | 2024-05-04 19:27 | PC.NURSE ---
(Shift [id number]) Pt alert and oriented. Pt had complaints of pain ranging 0-2. Pt up walking in hallways walking three times. Pt is on a full liquid diet and tolerating well. Pt?s midline dressing was removed by surgeon today and steri strips underneath intact.?
[2024-05-05] MEDS: HYDROCODONE-ACETAMIN 5-325 MG 1 TAB PO (02:33)
[2024-05-05 02:35] VITALS: BP 131/89; PULSE 60; RESP 16; TEMP 36.8; O2SAT 97
--- NOTE | 2024-05-05 06:22 | PC.NURSE ---
End of shift note ([id number]): Patient pleasant, alert and oriented. Ambulated independently in hallways. Patient reports she is passing gas. Diastolic BP elevated to 142/93. Recheck BP 131/89. Given PRN [place] for pain in abdomen rated 3-4/10. Steri-strips to abdomen are clean, dry and intact. ?
[2024-05-05 07:00] VITALS: RESP 18; O2SAT 97
--- NOTE | 2024-05-05 08:05 | P.DS_ITS ---
DS: Providers Provider Date Seen: 05/05/24 Date of admission: 05/02/24 06:12 Primary care physician: Padmini Raines DO Admitting Clinician: Mauricio House MD Attending Physician on discharge: Mauricio House MD DS: Diagnosis Discharge Diagnosis (1) S/P laparoscopy: Status: Acute Problem details: lap ileocecectomy DS: Summary Hospital Course Hospital Course: 48-year-old female was admitted to the hospital after she underwent laparoscopic ileocecectomy. Patient did well postoperatively. She had return of bowel function. She was tolerating diet. She was able to urinate on her own after brief period of urinary retention. Her pain was controlled with p.o. medications. She was ambulating. Time Spent with Patient Time attestation: Total time spent providing and/or coordinating discharge services: Exam Narrative: Exam Narrative: Abdomen is soft, not distended, minimally tender to palpation in the left lower quadrant, laparoscopic incisions and upper midline incision are healing well with clean steroids. There is no surrounding erythema. Const: Vital Signs, click to edit/add: Vital Signs - 24 hr 05/04/24 10:59 05/04/24 14:35 05/04/24 14:44 Temperature 98.4 F 98.2 F Pulse Rate [Pulse Oximeter] 65 72 Respiratory Rate 16 18 18 Blood Pressure [Ri ght Arm] 131/85 132/91 H Pulse Oximetry 98 96 96 Oxygen Delivery Me thod Room Air Room Air Room Air 05/04/24 19:00 05/04/24 23:00 05/04/24 23:00 Temperature 98.7 F 98.4 F Pulse Rate [Pulse Oximeter] 65 68 Respiratory Rate 18 18 18 Blood Pressure [Ri ght Arm] 135/91 H 142/93 H Pulse Oximetry 98 97 97 Oxygen Delivery Me thod Room Air Room Air Room Air 05/05/24 02:35 Temperature 98.3 F Pulse Rate [Pulse Oximeter] 60 Respiratory Rate 16 Blood Pressure [Ri ght Arm] 131/89 Pulse Oximetry 97 Oxygen Delivery Me thod Room Air Discharge Plan Discharge Disposition: Home, Self-Care Date of Admission: 05/02/24 06:12 Attending Provider on Discharge: Mauricio House Primary Care Provider: Padmini Raines Condition: Improved Anticipated Discharge Date/Time: 05/05/24 10:00 Discharge Medications: New hydrocodone-acetaminophen 5-325 mg tablet 1 tab PO Q6H PRN (Reason: pain) Qty: 25 0RF Continued paroxetine HCl 12.5 mg tablet extended release 24 hr 12.5 mg PO DAILY Discharge Orders: Discharge Order (Routine); Ordered 05/05/24 Ordered By: Mauricio House Activity Level: No strenuous activity Activity Detail: No strenuous activity or lifting more than 15-20 lbs for 4-6 weeks. Take laxative such as MiraLax or senna daily for the first 7-10 days after surgery to prevent constipation. Discharge Diet: Regular Follow Up Appointments: Mauricio House MD [Staff Physician] - (2 weeks [facility]) Forms: [employer] - [employer] Your [employer]! Info Instructions
[2024-05-05 08:50] VITALS: BP 138/88; PULSE 78; RESP 18; TEMP 36.8; O2SAT 97
--- NOTE | 2024-05-05 12:22 | PC.NURSE ---
shift note: vss stable. pt up indept in halls. pt states pain in comfort level. incision midline abd open to air with no redness or drainage. lap sites x2 to lower abd intact with small amount of old blood. BS hypo x4. Pt passing flatus. pt tolerated soft diet in small portions. Reviewed dc instructions and copies sent with pt at dc. Belongings reviewed and sent with pt at dc. IV dc'd intact Rt Wrist.
== END 2024-05-05 09:15 | disposition home or self-care (01) | DRG 331 ==
PROVIDERS: Anesthesiology; Admitting Provider Surgery; PCP Family Medicine; Visit Provider Surgery
PROC: 0DTH4ZZ Resection of Cecum, Percutaneous Endoscopic Approach (ICD-10-PCS; principal; 2024-05-02 07:30)
DX: K56.2 Volvulus (principal); K66.0 Peritoneal adhesions (postprocedural) (postinfection); R10.31 Right lower quadrant pain; G89.18 Other acute postprocedural pain; R33.9 Retention of urine, unspecified; F34.1 Dysthymic disorder; D50.9 Iron deficiency anemia, unspecified; E55.9 Vitamin D deficiency, unspecified
CPT/HCPCS: 00790; 36415; 51702; 64488; 76942; 81025; 85018; 88307; A9270; C9290; J0330; J0665; J1100; J1170; J1335; J1630; J1885; J2405; J2704; J2710; J3010; J3475; J3490; J7120